=== PATIENT | female | born 1970 | race Hispanic/Latino ===

== ENCOUNTER 2021-11-11 08:47 | Emergency (ER) | payer SELFPAY ==
[2021-11-11] MEDS ORDERED: hydrOXYzine HCL 25 MG TAB PO ONE (09:18)
[2021-11-11] MEDS ORDERED: IBUPROFEN 600 MG TAB PO ONE (09:18)
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
[2021-11-11 10:20] LABS: Bilirubin,Urine NEG (Negative); Blood,Urine MOD (Negative); Color,Urine Yellow (Yellow); Protein,Urine <15 mg/dL mg/dL (Negative); Urobilinogen,Urine < 2.0 mg/dL (<2.0)
--- NOTE | 2021-11-11 11:06 | Vascular Lab Report ---
DUPLEX DOPPLER LOWER EXTREMITY VEINS, RIGHT INDICATION / CLINICAL INFORMATION: pain/swelling. TECHNIQUE: Duplex doppler imaging was performed through the veins of the right lower extremity using venous comp ression and other maneuvers. COMPARISON: None available. FINDINGS: RIGHT COMMON FEMORAL VEIN: Negative. RIGHT FEMORAL VEIN: Negative. RIGHT POPLITEAL VEIN: Negative. RIGHT CALF VEINS: Negative. ADDITIONAL FINDINGS: None. IMPRESSION: 1. No sonographic evidence for DVT in the right lower extremity. Signer Name: Edgar Layton MD Signed: 11/11/2021 11:02 AM Workstation Name: [id number]
[2021-11-11 12:04] LABS: Hematocrit 36.4 % (30.3-42.9); Hemoglobin 12.8 gm/dl (10.1-14.3); Mean Corpuscular HGB Conc 35 % (30-34); Mean Corpuscular Volume 88 fl (79-97); Platelet Count 268 K/mm3 (140-440); Red Blood Count 4.13 M/mm3 (3.65-5.03); Red Cell Distribution Width 13.1 % (13.2-15.2)
[2021-11-11 12:18] LABS: Blood Urea Nitrogen 16 mg/dL (7-17); Calcium 9.7 mg/dL (8.4-10.2); Hemolysis Index 9
[2021-11-11 12:24] LABS: BUN/Creatinine Ratio 27
[2021-11-11 13:20] VITALS: BP 150/96
== END 2021-11-11 13:23 | disposition home or self-care (01) ==
LOC: ED 08:47
DX: R60.0 Localized edema (principal); R53.81 Other malaise; R31.29 Other microscopic hematuria; N34.2 Other urethritis
CPT/HCPCS: 36415; 80048; 81001; 85027; 93971; 99284; Q0177

== ENCOUNTER 2022-04-15 18:37 | Emergency (ER) | payer SELFPAY ==
[2022-04-15 19:17] VITALS: BP 130/90
== END 2022-04-16 05:02 | disposition left against medical advice (07) ==
LOC: ED 18:37
DX: R10.9 Unspecified abdominal pain (principal); Z53.21 Procedure and treatment not carried out due to patient leaving prior to being seen by health care provider

== ENCOUNTER 2022-04-17 08:39 | Inpatient (IN) | payer SELFPAY ==
[2022-04-17] MEDS ORDERED: oxyCODONE /ACETAMINOPHEN 5-325MG TAB PO ONE (09:45)
[2022-04-17] MEDS ORDERED: ONDANSETRON 4 MG ODT TAB PO ONE (09:45)
--- NOTE | 2022-04-17 09:49 | Emergency Department Report ---
ED Abdominal Pain HPI - General Chief Complaint: Abdominal Pain Stated Complaint: ABDOMINAL PAIN Time Seen by Provider: 04/17/22 09:36 Source: patient, EMS Mode of arrival: Stretcher Limitations: No Limitations - History of Present Illness Initial Comments: 52-year-old female with surgical history of gallbladder removal, spinal fusion, hysterectomy reports to the ER with upper abdominal pain for 3 to weeks to 1 month. Patient reports the pain has increased over the last few days with increased nausea and vomiting. Patient reports her pain is 8 out of 10. Patient denies any suspicious food intake, no injury to abdomen area. Patient denies any consumption of alcohol. Patient denies weakness, dizziness, headaches, fever. No other acute symptoms reported this time. - Related Data Previous Rx's Medication Instructions Recorded Last Taken Type Ibuprofen [Motrin] 800 mg PO Q8HR PRN #20 tablet 11/11/21 Unknown Rx Phenazopyridine [Pyridium] 200 mg PO TID #9 tab 11/11/21 Unknown Rx Allergies Allergy/AdvReac Type Severity Reaction Status Date / Time Sulfa (Sulfonamide Allergy Intermediate Hives Verified 04/17/22 08:42 Antibiotics) ED Review of Systems ROS: Stated complaint: ABDOMINAL PAIN Other details as noted in HPI Comment: All other systems reviewed and negative Gastrointestinal: abdominal pain, nausea, vomiting. denies: diarrhea, constipation ED Past Medical Hx - Past Medical History Previous Medical History?: No Hx Hypertension: No Hx Congestive Heart Failure: No Hx Deep Vein Thrombosis: No - Surgical History Hx Cholecystectomy: Yes Additional Surgical History: spine fusion - Social History Smoking Status: Current Every Day Smoker - Medications Home Medications: Home Medications Medication Instructions Recorded Confirmed Last Taken Type Ibuprofen [Motrin] 800 mg PO Q8HR PRN #20 tablet 11/11/21 Unknown Rx Phenazopyridine [Pyridium] 200 mg PO TID #9 tab 11/11/21 Unknown Rx ED Physical Exam - General Limitations: No Limitations General appearance: alert, in no apparent distress - Head Head exam: Present: atraumatic, normocephalic - Eye Eye exam: Present: normal appearance - ENT ENT exam: Present: mucous membranes moist - Neck Neck exam: Present: normal inspection - Respiratory Respiratory exam: Present: normal lung sounds bilaterally. Absent: respiratory distress - Cardiovascular Cardiovascular Exam: Present: regular rate, normal rhythm. Absent: systolic murmur, diastolic murmur, rubs, gallop - GI/Abdominal GI/Abdominal exam: Present: soft, distended, tenderness, normal bowel sounds. Absent: guarding, rebound - Extremities Exam Extremities exam: Present: normal inspection - Back Exam Back exam: Present: normal inspection - Neurological Exam Neurological exam: Present: alert, oriented X3 - Psychiatric Psychiatric exam: Present: normal affect, normal mood - Skin Skin exam: Present: warm, dry, intact, normal color. Absent: rash ED Course Vital Signs 04/17/22 04/17/22 04/17/22 08:40 18:10 18:15 Temperature 98.1 F Pulse Rate 110 H 111 H 110 H Respiratory 14 20 20 Rate Blood Pressure 167/128 Blood Pressure 171/140 [Left] O2 Sat by Pulse 98 96 100 Oximetry 04/17/22 04/17/22 04/17/22 18:26 18:30 18:41 Temperature Pulse Rate 111 H 110 H Respiratory 17 18 17 Rate Blood Pressure 158/114 Blood Pressure 167/128 [Left] O2 Sat by Pulse 100 99 99 Oximetry 04/17/22 04/17/22 04/17/22 18:45 19:01 19:16 Temperature Pulse Rate 109 H Respiratory 20 Rate Blood Pressure 156/105 158/114 156/105 Blood Pressure [Left] O2 Sat by Pulse 98 95 94 Oximetry 04/17/22 04/17/22 04/17/22 19:35 19:37 19:52 Temperature 98.2 F Pulse Rate 100 H Respiratory 18 Rate Blood Pressure 151/108 156/105 Blood Pressure 151/101 [Left] O2 Sat by Pulse 99 97 99 Oximetry 04/17/22 20:01 Temperature Pulse Rate 104 H Respiratory 20 Rate Blood Pressure 158/114 Blood Pressure [Left] O2 Sat by Pulse 97 Oximetry ED Medical Decision Making - Lab Data Result diagrams: 04/17/22 09:50 04/17/22 09:50 - Medical Decision Making 52-year-old female with no significant past medical history reports to the ER with right upper quadrant pain for about 3 to 3 weeks to 1 month. On physical exam there is right upper quadrant tenderness negative Barton sign. Some epigastric pain. Slight abdominal distention. Patient has elevated BNP at about 11,900 Patient has elevated LFTs with an AST of 603 ALT was 476 and a bilirubin of 1.3 Chest x-ray shows enlargement of the heart. CT abdomen pelvis with contrast shows mild cardiomegaly with mild apparent medically with passive congestion associated with possible CHF. [facility] medicine spoke with Dr. Abdi for admission for new onset of CHF and elevated LFTs. Dr. Abdi accepted admission with a diagnosis of CHF and elevated LFTs. Vital Signs 04/17/22 04/17/22 04/17/22 08:40 18:10 18:15 Temperature 98.1 F Pulse Rate 110 H 111 H 110 H Respiratory 14 20 20 Rate Blood Pressure 167/128 Blood Pressure 171/140 [Left] O2 Sat by Pulse 98 96 100 Oximetry 04/17/22 04/17/22 04/17/22 18:26 18:30 18:41 Temperature Pulse Rate 111 H 110 H Respiratory 17 18 17 Rate Blood Pressure 158/114 Blood Pressure 167/128 [Left] O2 Sat by Pulse 100 99 99 Oximetry 04/17/22 04/17/22 04/17/22 18:45 19:01 19:16 Temperature Pulse Rate 109 H Respiratory 20 Rate Blood Pressure 156/105 158/114 156/105 Blood Pressure [Left] O2 Sat by Pulse 98 95 94 Oximetry 04/17/22 04/17/22 04/17/22 19:35 19:37 19:52 Temperature 98.2 F Pulse Rate 100 H Respiratory 18 Rate Blood Pressure 151/108 156/105 Blood Pressure 151/101 [Left] O2 Sat by Pulse 99 97 99 Oximetry 04/17/22 20:01 Temperature Pulse Rate 104 H Respiratory 20 Rate Blood Pressure 158/114 Blood Pressure [Left] O2 Sat by Pulse 97 Oximetry Lab Results 04/17/22 04/17/22 04/17/22 Range/Units 09:50 09:50 10:12 WBC 9.4 (4.5-11.0) K/mm3 RBC 4.44 (3.65-5.03) M/mm3 Hgb 13.0 (10.1-14.3) gm/dl Hct 39.4 (30.3-42.9) % MCV 89 (79-97) fl MCH 29 (28-32) pg MCHC 33 (30-34) % RDW 14.6 (13.2-15.2) % Plt Count 342 (140-440) K/mm3 Lymph % (Auto) 23.4 (13.4-35.0) % [place] % (Auto) 11.0 H (0.0-7.3) % Eos % (Auto) 0.3 (0.0-4.3) % Baso % (Auto) 0.9 (0.0-1.8) % Lymph # (Auto) 2.2 (1.2-5.4) K/mm3 [place] # (Auto) 1.0 H (0.0-0.8) K/mm3 Eos # (Auto) 0.0 (0.0-0.4) K/mm3 Baso # (Auto) 0.1 (0.0-0.1) K/mm3 Seg Neutrophils % 64.4 (40.0-70.0) % Seg Neutrophils # 6.1 (1.8-7.7) K/mm3 Sodium 136 L (137-145) mmol/L Potassium 4.4 (3.6-5.0) mmol/L Chloride 102.2 (98-107) mmol/L Carbon Dioxide 22 (22-30) mmol/L Anion Gap 16 mmol/L BUN 15 (7-17) mg/dL Creatinine 0.7 (0.6-1.2) mg/dL Estimated GFR > 60 ml/min BUN/Creatinine Ratio 21 % Glucose 96 (65-100) mg/dL Calcium 8.9 (8.4-10.2) mg/dL Total Bilirubin 1.30 H (0.1-1.2) mg/dL Direct Bilirubin (0-0.2) mg/dL Indirect Bilirubin mg/dL AST 603 H (5-40) units/L ALT 476 H (7-56) units/L Alkaline Phosphatase 166 H (35-129) units/L Troponin T (0.00-0.029) ng/mL NT-Pro-B Natriuret Pep (0-900) pg/mL Total Protein 6.2 L (6.3-8.2) g/dL Albumin 3.7 L (3.9-5) g/dL Albumin/Globulin Ratio 1.5 % Lipase 15 (13-60) units/L Urine Color Sia (Yellow) Urine Turbidity Clear (Clear) Urine pH 5.0 (5.0-7.0) Ur Specific [place] 1.030 (1.003-1.030) Urine Protein 30 mg/dl (Negative) mg/dL Urine Glucose (UA) Negative (Negative) mg/dL Urine Ketones 2+ (Negative) mg/dL Urine Blood Negative (Negative) Urine Nitrite Negative (Negative) Urine Bilirubin 1+ (Negative) Urine Ictotest Negative (Negative) Urine Urobilinogen 0.0 (<2.0) mg/dL Ur Leukocyte Esterase Negative (Negative) Urine WBC (Auto) < 1.0 (0.0-6.0) /HPF Urine RBC (Auto) < 1.0 (0.0-6.0) /HPF U Epithel Cells (Auto) 15.0 H (0-13.0) /HPF Hepatitis A IgM Ab (NonReactive) Hep Bs Antigen (Negative) Hep B Core IgM Ab (NonReactive) Hepatitis C Antibody (NonReactive) 04/17/22 04/17/22 04/17/22 Range/Units 17:18 17:18 19:20 WBC (4.5-11.0) K/mm3 RBC (3.65-5.03) M/mm3 Hgb (10.1-14.3) gm/dl Hct (30.3-42.9) % MCV (79-97) fl MCH (28-32) pg MCHC (30-34) % RDW (13.2-15.2) % Plt Count (140-440) K/mm3 Lymph % (Auto) (13.4-35.0) % [place] % (Auto) (0.0-7.3) % Eos % (Auto) (0.0-4.3) % Baso % (Auto) (0.0-1.8) % Lymph # (Auto) (1.2-5.4) K/mm3 [place] # (Auto) (0.0-0.8) K/mm3 Eos # (Auto) (0.0-0.4) K/mm3 Baso # (Auto) (0.0-0.1) K/mm3 Seg Neutrophils % (40.0-70.0) % Seg Neutrophils # (1.8-7.7) K/mm3 Sodium (137-145) mmol/L Potassium (3.6-5.0) mmol/L Chloride (98-107) mmol/L Carbon Dioxide (22-30) mmol/L Anion Gap mmol/L BUN (7-17) mg/dL Creatinine (0.6-1.2) mg/dL Estimated GFR ml/min BUN/Creatinine Ratio % Glucose (65-100) mg/dL Calcium (8.4-10.2) mg/dL Total Bilirubin 1.50 H (0.1-1.2) mg/dL Direct Bilirubin 0.6 H (0-0.2) mg/dL Indirect Bilirubin 0.9 mg/dL AST (5-40) units/L ALT 579 H (7-56) units/L Alkaline Phosphatase 169 H (35-129) units/L Troponin T < 0.010 (0.00-0.029) ng/mL NT-Pro-B Natriuret Pep 04137 H (0-900) pg/mL Total Protein 6.4 (6.3-8.2) g/dL Albumin 3.5 L (3.9-5) g/dL Albumin/Globulin Ratio 1.2 % Lipase (13-60) units/L Urine Color (Yellow) Urine Turbidity (Clear) Urine pH (5.0-7.0) Ur Specific [place] (1.003-1.030) Urine Protein (Negative) mg/dL Urine Glucose (UA) (Negative) mg/dL Urine Ketones (Negative) mg/dL Urine Blood (Negative) Urine Nitrite (Negative) Urine Bilirubin (Negative) Urine Ictotest (Negative) Urine Urobilinogen (<2.0) mg/dL Ur Leukocyte Esterase (Negative) Urine WBC (Auto) (0.0-6.0) /HPF Urine RBC (Auto) (0.0-6.0) /HPF U Epithel Cells (Auto) (0-13.0) /HPF Hepatitis A IgM Ab (NonReactive) Hep Bs Antigen (Negative) Hep B Core IgM Ab (NonReactive) Hepatitis C Antibody (NonReactive) 04/17/22 Range/Units 19:20 WBC (4.5-11.0) K/mm3 RBC (3.65-5.03) M/mm3 Hgb (10.1-14.3) gm/dl Hct (30.3-42.9) % MCV (79-97) fl MCH (28-32) pg MCHC (30-34) % RDW (13.2-15.2) % Plt Count (140-440) K/mm3 Lymph % (Auto) (13.4-35.0) % [place] % (Auto) (0.0-7.3) % Eos % (Auto) (0.0-4.3) % Baso % (Auto) (0.0-1.8) % Lymph # (Auto) (1.2-5.4) K/mm3 [place] # (Auto) (0.0-0.8) K/mm3 Eos # (Auto) (0.0-0.4) K/mm3 Baso # (Auto) (0.0-0.1) K/mm3 Seg Neutrophils % (40.0-70.0) % Seg Neutrophils # (1.8-7.7) K/mm3 Sodium (137-145) mmol/L Potassium (3.6-5.0) mmol/L Chloride (98-107) mmol/L Carbon Dioxide (22-30) mmol/L Anion Gap mmol/L BUN (7-17) mg/dL Creatinine (0.6-1.2) mg/dL Estimated GFR ml/min BUN/Creatinine Ratio % Glucose (65-100) mg/dL Calcium (8.4-10.2) mg/dL Total Bilirubin (0.1-1.2) mg/dL Direct Bilirubin (0-0.2) mg/dL Indirect Bilirubin mg/dL AST (5-40) units/L ALT (7-56) units/L Alkaline Phosphatase (35-129) units/L Troponin T (0.00-0.029) ng/mL NT-Pro-B Natriuret Pep (0-900) pg/mL Total Protein (6.3-8.2) g/dL Albumin (3.9-5) g/dL Albumin/Globulin Ratio % Lipase (13-60) units/L Urine Color (Yellow) Urine Turbidity (Clear) Urine pH (5.0-7.0) Ur Specific [place] (1.003-1.030) Urine Protein (Negative) mg/dL Urine Glucose (UA) (Negative) mg/dL Urine Ketones (Negative) mg/dL Urine Blood (Negative) Urine Nitrite (Negative) Urine Bilirubin (Negative) Urine Ictotest (Negative) Urine Urobilinogen (<2.0) mg/dL Ur Leukocyte Esterase (Negative) Urine WBC (Auto) (0.0-6.0) /HPF Urine RBC (Auto) (0.0-6.0) /HPF U Epithel Cells (Auto) (0-13.0) /HPF Hepatitis A IgM Ab Non-reactive (NonReactive) Hep Bs Antigen Non-reactive (Negative) Hep B Core IgM Ab Non-reactive (NonReactive) Hepatitis C Antibody Non-reactive (NonReactive) Critical care attestation.: If time is entered above; I have spent that time in minutes in the direct care of this critically ill patient, excluding procedure time. ED Disposition Clinical Impression: New onset of congestive heart failure, Elevated liver enzymes Disposition: 09 ADMITTED INPATIENT Is pt being admited?: Yes Condition: Stable Instructions: Abdominal Pain (ED)
[2022-04-17 10:56] LABS: Basophils # (Auto) 0.1 K/mm3 (0.0-0.1); Basophils % (Auto) 0.9 % (0.0-1.8); Eosinophils % (Auto) 0.3 % (0.0-4.3); Hematocrit 39.4 % (30.3-42.9); Lymphocytes # (Auto) 2.2 K/mm3 (1.2-5.4); Lymphocytes % (Auto) 23.4 % (13.4-35.0); Mean Corpuscular HGB Conc 33 % (30-34); Mean Corpuscular Volume 89 fl (79-97); Platelet Count 342 K/mm3 (140-440); Red Blood Count 4.44 M/mm3 (3.65-5.03); Red Cell Distribution Width 14.6 % (13.2-15.2)
[2022-04-17 11:02] LABS: Alanine Aminotransferase 476 units/L (7-56); Albumin 3.7 g/dL (3.9-5); Blood Urea Nitrogen 15 mg/dL (7-17); Calcium 8.9 mg/dL (8.4-10.2); Hemolysis Index 3
[2022-04-17 11:05] LABS: BUN/Creatinine Ratio 21
[2022-04-17 15:05] LABS: Color,Urine Amber (Yellow)
[2022-04-17 15:06] LABS: Bilirubin,Urine 1+ (Negative); Blood,Urine Negative (Negative); Ictotest,Urine Negative (Negative); RBC,Urine < 1.0 /HPF (0.0-6.0); WBC,Urine < 1.0 /HPF (0.0-6.0)
--- NOTE | 2022-04-17 15:48 | Cat Scan Report ---
CT ABDOMEN AND PELVIS WITH CONTRAST INDICATION / CLINICAL INFORMATION: abdominal pain 100ml of [id number] per pt having upper Right side radha n, also having back pain and has a hx of kidney stones. TECHNIQUE: Axial CT images were obtained through the abdomen and pelvis after IV contrast. All CT sc ans at this location are performed using CT dose reduction for ALARA by means of automated exposure c ontrol. COMPARISON: None available. FINDINGS: LOWER CHEST: Mild cardiomegaly with left ventricular chamber dilation. Moderate volume right and smal l left pleural effusions with right greater than left basilar subsegmental atelectasis. LIVER: Mild hepatomegaly with heterogeneous enhancement, which may be secondary to passive congestion associated with CHF. No capsular nodularity to suggest cirrhosis. No suspicious focal hepatic mass. The portal vein is patent. GALLBLADDER/BILIARY: Cholecystectomy. PANCREAS: No significant abnormality. SPLEEN: No significant abnormality. ADRENALS: No significant abnormality. KIDNEYS/URETERS: No urolithiasis, hydronephrosis, solid renal mass or other significant abnormality. GI: No acute bowel inflammation, obstruction or evidence for ischemia. APPENDIX: No significant abnormality. PERITONEUM: No pneumoperitoneum, free peritoneal fluid or loculated fluid collection. LYMPH NODES: No significant adenopathy. AORTA / ARTERIES: No significant abnormality. URINARY BLADDER: No significant abnormality. REPRODUCTIVE ORGANS: Uterus is absent. No significant adnexal abnormality. SKELETAL SYSTEM: Postoperative changes from posterior element decompression and fusion spanning L4-S1 . Hardware has been removed at L5-S1. ADDITIONAL FINDINGS: None. IMPRESSION: 1. No acute abdominopelvic process. 2. Right greater than left pleural effusions and suspected passive hepatic congestion associated with chronic congestive heart failure. 3. Other postoperative incidental findings, as detailed above. Signer Name: Franki Ackerman MD Signed: 04/17/2022 3:44 PM Workstation Name: [id number]
--- NOTE | 2022-04-17 17:33 | XRay Report ---
CHEST 1 VIEW INDICATION: abnormal CT findings of chest. COMPARISON: None. FINDINGS: Support devices: None. Heart: Enlarged. Lungs/Pleura: Small right and trace left effusions. Bibasilar opacities may be atelectatic. Left lung is essentially clear. No pneumothorax. IMPRESSION: 1. Small right and trace left pleural effusions with atelectatic changes in the right lung base. Signer Name: Tye Menchaca MD Signed: 04/17/2022 5:29 PM Workstation Name: [email or web address]
[2022-04-17] MEDS ORDERED: FUROSEMIDE 40 MG/4 ML INJ IV ONE (18:23)
[2022-04-17] MEDS ORDERED: MORPHINE 4 MG/1 ML INJ IV ONE (18:24)
[2022-04-17 20:00] LABS: Albumin 3.5 g/dL (3.9-5); Bilirubin,Direct 0.6 mg/dL (0-0.2)
[2022-04-17 20:12] LABS: Hepatitis B Surface Antigen Non-Reactive (Negative); Hepatitis C Virus Antibody Non-Reactive (NonReactive)
--- NOTE | 2022-04-17 21:21 | History and Physical Report ---
History of Present Illness Date of examination: 04/17/22 Date of admission: 04/17/2022 Chief complaint: Chest pain and cough for 1 day History of present illness: 52-year-old female with no significant past medical history comes in for increasing shortness of breath for 2 weeks. Shortness of breath on minimal exertion and orthopnea present. No chest pain. Patient also has right upper quadrant pain. Patient had cholecystectomy in the past and Hysterectomy no fever or chills. Patient was seen now for 10 minutes/11/25/2020 3 years ago. Not on any narcotics or opiates from previous 3 years ago. No alcohol. - Past Medical History --No - Surgical History --Cholecystectomy: Yes --Spine fusion - Social History --Smoking Status: Current Every Day Smoker -Family history Htn Review of Systems ROS: Stated complaint: ABDOMINAL PAIN Other details as noted in HPI Comment: All other systems reviewed and negative Gastrointestinal: abdominal pain, nausea, vomiting. denies: diarrhea, constipation Medications and Allergies Allergies Allergy/AdvReac Type Severity Reaction Status Date / Time Sulfa (Sulfonamide Allergy Intermediate Hives Verified 04/17/22 21:39 Antibiotics) Home Medications Medication Instructions Recorded Confirmed Last Taken Type Ibuprofen [Motrin] 800 mg PO Q8HR PRN #20 tablet 11/11/21 04/18/22 Unknown Rx Phenazopyridine [Pyridium] 200 mg PO TID #9 tab 11/11/21 04/18/22 Unknown Rx Exam - Constitutional Vitals: Temp Pulse Resp BP Pulse Ox 98.2 F 104 H 20 158/114 97 04/17/22 19:35 04/17/22 20:01 04/17/22 20:01 04/17/22 20:01 04/17/22 20:01 General appearance: Present: no acute distress, well-nourished - EENT Eyes: Present: PERRL ENT: hearing intact, clear oral mucosa - Neck Neck: Present: supple, normal ROM - Respiratory Respiratory effort: normal Respiratory: bilateral: CTA - Cardiovascular Heart rate: 78 Rhythm: regular Heart Sounds: Present: S1 & S2. Absent: rub, click - Extremities Extremities: pulses symmetrical, No edema Peripheral Pulses: within normal limits - Abdominal General gastrointestinal: Present: soft, non-tender, non-distended, normal bowel sounds Female genitourinary: Present: normal - Integumentary Integumentary: Present: clear, warm, dry - Musculoskeletal Musculoskeletal: gait normal, strength equal bilaterally - Psychiatric Psychiatric: appropriate mood/affect, intact judgment & insight - Neurologic Neurologic: CNII-XII intact, moves all extremities - Allied Health Allied health notes reviewed: nursing HEART Score - HEART Score History: Slightly suspicious Age: 45-65 Risk factors: 1-2 risk factors Troponin: Troponin T < 0.010 ng/mL (0.00-0.029) 04/17/22 17:18 Troponin: < normal limit - Critical Actions Critical Actions: 4-6 pts:12-16.6% risk of adverse cardiac event. Should be admitted Results - Labs CBC & Chem 7: 04/18/22 03:48 04/18/22 03:48 Labs: Laboratory Last Values WBC 9.4 K/mm3 (4.5-11.0) 04/17/22 09:50 RBC 4.44 M/mm3 (3.65-5.03) 04/17/22 09:50 Hgb 13.0 gm/dl (10.1-14.3) 04/17/22 09:50 Hct 39.4 % (30.3-42.9) 04/17/22 09:50 MCV 89 fl (79-97) 04/17/22 09:50 MCH 29 pg (28-32) 04/17/22 09:50 MCHC 33 % (30-34) 04/17/22 09:50 RDW 14.6 % (13.2-15.2) 04/17/22 09:50 Plt Count 342 K/mm3 (140-440) 04/17/22 09:50 Lymph % (Auto) 23.4 % (13.4-35.0) 04/17/22 09:50 [place] % (Auto) 11.0 % (0.0-7.3) H 04/17/22 09:50 Eos % (Auto) 0.3 % (0.0-4.3) 04/17/22 09:50 Baso % (Auto) 0.9 % (0.0-1.8) 04/17/22 09:50 Lymph # (Auto) 2.2 K/mm3 (1.2-5.4) 04/17/22 09:50 [place] # (Auto) 1.0 K/mm3 (0.0-0.8) H 04/17/22 09:50 Eos # (Auto) 0.0 K/mm3 (0.0-0.4) 04/17/22 09:50 Baso # (Auto) 0.1 K/mm3 (0.0-0.1) 04/17/22 09:50 Seg Neutrophils % 64.4 % (40.0-70.0) 04/17/22 09:50 Seg Neutrophils # 6.1 K/mm3 (1.8-7.7) 04/17/22 09:50 Sodium 136 mmol/L (137-145) L 04/17/22 09:50 Potassium 4.4 mmol/L (3.6-5.0) 04/17/22 09:50 Chloride 102.2 mmol/L (98-107) 04/17/22 09:50 Carbon Dioxide 22 mmol/L (22-30) 04/17/22 09:50 Anion Gap 16 mmol/L 04/17/22 09:50 BUN 15 mg/dL (7-17) 04/17/22 09:50 Creatinine 0.7 mg/dL (0.6-1.2) 04/17/22 09:50 Estimated GFR > 60 ml/min 04/17/22 09:50 BUN/Creatinine Ratio 21 % 04/17/22 09:50 Glucose 96 mg/dL (65-100) 04/17/22 09:50 Calcium 8.9 mg/dL (8.4-10.2) 04/17/22 09:50 Total Bilirubin 1.50 mg/dL (0.1-1.2) H 04/17/22 19:20 Direct Bilirubin 0.6 mg/dL (0-0.2) H 04/17/22 19:20 Indirect Bilirubin 0.9 mg/dL 04/17/22 19:20 AST 815 units/L (5-40) H 04/17/22 19:20 ALT 579 units/L (7-56) H 04/17/22 19:20 Alkaline Phosphatase 169 units/L (35-129) H 04/17/22 19:20 Troponin T < 0.010 ng/mL (0.00-0.029) 04/17/22 17:18 NT-Pro-B Natriuret Pep 45604 pg/mL (0-900) H 04/17/22 17:18 Total Protein 6.4 g/dL (6.3-8.2) 04/17/22 19:20 Albumin 3.5 g/dL (3.9-5) L 04/17/22 19:20 Albumin/Globulin Ratio 1.2 % 04/17/22 19:20 Lipase 15 units/L (13-60) 04/17/22 09:50 Urine Color Sia (Yellow) 04/17/22 10:12 Urine Turbidity Clear (Clear) 04/17/22 10:12 Urine pH 5.0 (5.0-7.0) 04/17/22 10:12 Ur Specific [place] 1.030 (1.003-1.030) 04/17/22 10:12 Urine Protein 30 mg/dl mg/dL (Negative) 04/17/22 10:12 Urine Glucose (UA) Negative mg/dL (Negative) 04/17/22 10:12 Urine Ketones 2+ mg/dL (Negative) 04/17/22 10:12 Urine Blood Negative (Negative) 04/17/22 10:12 Urine Nitrite Negative (Negative) 04/17/22 10:12 Urine Bilirubin 1+ (Negative) 04/17/22 10:12 Urine Ictotest Negative (Negative) 04/17/22 10:12 Urine Urobilinogen 0.0 mg/dL (<2.0) 04/17/22 10:12 Ur Leukocyte Esterase Negative (Negative) 04/17/22 10:12 Urine WBC (Auto) < 1.0 /HPF (0.0-6.0) 04/17/22 10:12 Urine RBC (Auto) < 1.0 /HPF (0.0-6.0) 04/17/22 10:12 U Epithel Cells (Auto) 15.0 /HPF (0-13.0) H 04/17/22 10:12 Hepatitis A IgM Ab Non-reactive (NonReactive) 04/17/22 19:20 Hep Bs Antigen Non-reactive (Negative) 04/17/22 19:20 Hep B Core IgM Ab Non-reactive (NonReactive) 04/17/22 19:20 Hepatitis C Antibody Non-reactive (NonReactive) 04/17/22 19:20 Short CBC 04/17/22 04/18/22 Range/Units 09:50 03:48 WBC 9.4 7.1 (4.5-11.0) K/mm3 Hgb 13.0 12.7 (10.1-14.3) gm/dl Hct 39.4 38.4 (30.3-42.9) % Plt Count 342 286 (140-440) K/mm3 BMP 04/17/22 04/18/22 09:50 03:48 Sodium 136 L 136 L Potassium 4.4 4.1 Chloride 102.2 98.9 Carbon Dioxide 22 26 BUN 15 17 Creatinine 0.7 0.8 Glucose 96 117 H Calcium 8.9 8.6 Cardiac Enzymes 04/17/22 Range/Units 17:18 Troponin T < 0.010 (0.00-0.029) ng/mL Liver Function 04/17/22 04/17/22 04/18/22 Range/Units 09:50 19:20 03:48 Total Bilirubin 1.30 H 1.50 H 1.00 (0.1-1.2) mg/dL Direct Bilirubin 0.6 H (0-0.2) mg/dL AST 603 H 815 H 516 H (5-40) units/L ALT 476 H 579 H 474 H (7-56) units/L Alkaline Phosphatase 166 H 169 H 148 H (35-129) units/L Albumin 3.7 L 3.5 L 3.3 L (3.9-5) g/dL Urine 04/17/22 Range/Units 10:12 Urine Color Sia (Yellow) Urine pH 5.0 (5.0-7.0) Ur Specific [place] 1.030 (1.003-1.030) Urine Protein 30 mg/dl (Negative) mg/dL Urine Glucose (UA) Negative (Negative) mg/dL - Imaging and Cardiology EKG: report reviewed (Sinus tachycardia heart rate of 54 minutes) Chest x-ray: report reviewed Imaging and Cardiology: CT of the abdomen and pelvis Liver: Mild hepatomegaly with heterogeneous enhancement which may be secondary to passive congestion associated with CHF. No capsular nodularity to suggest cirrhosis. No suspicious focal hepatic mass. The portal vein is patent. Cholecystectomy. No significant significant abnormality of pancreas. No significant abnormality of diagnosis. No kidney or ureteral problems. Final impression no acute abdominopelvic process. Right greater than left pleural effusions and suspected passive hepatic congestion. Assessment and Plan Advance Directives: Yes (Full code) Plan of care discussed with patient/family: Yes - Patient Problems (1) Acute exacerbation of CHF (congestive heart failure) Current Visit: Yes Status: Acute Plan to address problem: Daily intake output Daily weight IV Lasix Aldactone Echocardiogram for ejection fraction and valve abnormalities abnormal BNP is elevated Cardiology consult requested (2) New onset of congestive heart failure Current Visit: Yes Status: Acute Plan to address problem: IV Lasix initiated. Echocardiogram for ejection fraction and valve Cardiology consult requested abnormalities and wall motion abnormalities (3) Transaminitis Current Visit: Yes Status: Acute Plan to address problem: Differential diagnoses are hepatic congestion versus choledocholithiasis GI consult requested Hepatitis profile negative No history of alcoholism On Tylenol till 3-3 years ago (4) Advance care planning Current Visit: Yes Status: Acute Plan to address problem: Disease education conducted, care care plan discussed, diagnosis discussed and prognosis discussed. Patient acknowledged understanding with care plan. +30 minutes. (5) DVT prophylaxis Current Visit: Yes Status: Acute
[2022-04-17] MEDS ORDERED: METOCLOPRAMIDE 10 MG/2 ML INJ IV PRN (21:27)
[2022-04-17] MEDS ORDERED: ACETAMINOPHEN 325 MG TAB PO PRN (21:27)
[2022-04-17] MEDS ORDERED: ONDANSETRON 4 MG/2 ML INJ IV PRN (21:27)
[2022-04-17] MEDS ORDERED: SPIRONOLACTONE 25 MG TAB PO ONE (21:34)
[2022-04-17] MEDS ORDERED: POTASSIUM CHLORIDE ER 20 MEQ TAB PO ONE (21:34)
[2022-04-17] MEDS: VALSARTAN 160MG TAB PO SCH (22:48)
[2022-04-17] MEDS: carvediloL 6.25 MG TAB PO SCH (22:48)
[2022-04-17] MEDS: FAMOTIDINE 20 MG/2 ML INJ IV SCH (22:49)
[2022-04-17] MEDS: HEPARIN 5,000 UNIT/1 ML VIAL SUB-Q SCH (22:49)
[2022-04-17] MEDS: MORPHINE 2 MG/1 ML INJ IV PRN (23:13)
[2022-04-18] MEDS: MORPHINE 2 MG/1 ML INJ IV PRN ×4 (04:11→17:57)
[2022-04-18 04:24] LABS: Basophils % (Auto) 0.3 % (0.0-1.8); Eosinophils # (Auto) 0.1 K/mm3 (0.0-0.4); Hematocrit 38.4 % (30.3-42.9); Hemoglobin 12.7 gm/dl (10.1-14.3); Lymphocytes # (Auto) 2.4 K/mm3 (1.2-5.4); Lymphocytes % (Auto) 33.5 % (13.4-35.0); Mean Corpuscular HGB Conc 33 % (30-34); Mean Corpuscular Volume 89 fl (79-97); Monocytes # (Auto) 0.7 K/mm3 (0.0-0.8); Platelet Count 286 K/mm3 (140-440); Red Blood Count 4.32 M/mm3 (3.65-5.03)
[2022-04-18 04:45] LABS: Alanine Aminotransferase 474 units/L (7-56); Albumin 3.3 g/dL (3.9-5); BUN/Creatinine Ratio 21; Blood Urea Nitrogen 17 mg/dL (7-17); Calcium 8.6 mg/dL (8.4-10.2); Hemolysis Index 4
[2022-04-18] MEDS: FUROSEMIDE 40 MG/4 ML INJ IV SCH ×2 (05:26→17:54)
[2022-04-18] MEDS: carvediloL 6.25 MG TAB PO SCH ×2 (09:28→21:48)
[2022-04-18] MEDS: FAMOTIDINE 20 MG/2 ML INJ IV SCH ×2 (09:28→21:48)
[2022-04-18] MEDS: HEPARIN 5,000 UNIT/1 ML VIAL SUB-Q SCH ×2 (09:28→21:48)
[2022-04-18] MEDS: oxyCODONE /ACETAMINOPHEN 5-325MG TAB PO PRN (11:54)
[2022-04-18] MEDS ORDERED: SODIUM CHLORIDE 0.9% 500 ML 500 ML IV SCH (13:00)
--- NOTE | 2022-04-18 14:43 | Consultation ---
History of Present Illness Consult date: 04/18/22 Requesting physician: NACHO RUBIO Consult reason: congestive heart failure History of present illness: Patient is a 52-year-old female who reports a past medical history of degenerative joint disease, chronic back pain, and history of crack cocaine abuse(reports she has not used since June) who presents to the ED yesterday for complaint of weakness, dyspnea on exertion, and abdominal pain that has been going on for about a month. She states the pain became too severe that she had to come to be further evaluated. She describes her abdominal pain as sharp stabbing, worse with palpation, and locates it in the upper right quadrant. She also states that she develops lower extremity edema In the ED patient was found to have elevated BPs, elevated BNP and elevated LFTs. Abdominal CT shows suspected passive hepatic congestion associated with chronic CHF. At time of interview patient denies chest pain, palpitations, nausea, vomiting, diaphoresis. Patient is previously unknown to our practice. Cardiology is consulted for CHF. Past History Past Medical History: other (SEE HPI) Past Surgical History: cholecystectomy Social history: other (h/o crack coacaine use) Family history: cancer, diabetes, hypertension Medications and Allergies Allergies Allergy/AdvReac Type Severity Reaction Status Date / Time Sulfa (Sulfonamide Allergy Intermediate Hives Verified 04/17/22 21:39 Antibiotics) Home Medications Medication Instructions Recorded Confirmed Last Taken Type Ibuprofen [Motrin] 800 mg PO Q8HR PRN #20 tablet 11/11/21 04/18/22 Unknown Rx Phenazopyridine [Pyridium] 200 mg PO TID #9 tab 11/11/21 04/18/22 Unknown Rx Active Meds: Active Medications Acetaminophen (Acetaminophen 325 Mg Tab) 650 mg PO Q4H PRN PRN Reason: Pain MILD(1-3)/Fever >100.5/FIGUEROA Carvedilol (Carvedilol 6.25 Mg Tab) 12.5 mg PO BID [facility] Last Admin: 04/18/22 09:28 Dose: 12.5 mg Famotidine (Famotidine 20 Mg/2 Ml Inj) 20 mg IV BID [facility] Last Admin: 04/18/22 09:28 Dose: 20 mg Furosemide (Furosemide 40 Mg/4 Ml Inj) 40 mg IV 0600,1800 [facility] Last Admin: 04/18/22 05:26 Dose: 40 mg Heparin Sodium (Porcine) (Heparin 5,000 Unit/1 Ml Vial) 5,000 unit SUB-Q Q12HR [facility] Last Admin: 04/18/22 09:28 Dose: 5,000 unit Metoclopramide HCl (Metoclopramide 10 Mg/2 Ml Inj) 10 mg IV Q6H PRN PRN Reason: Nausea And Vomiting Morphine Sulfate (Morphine 2 Mg/1 Ml Inj) 2 mg IV Q4H PRN PRN Reason: Pain, Moderate (4-6) Last Admin: 04/18/22 13:54 Dose: 2 mg Ondansetron HCl (Ondansetron 4 Mg/2 Ml Inj) 4 mg IV Q8H PRN PRN Reason: Nausea And Vomiting Oxycodone/Acetaminophen (Oxycodone /Acetaminophen 5-325mg Tab) 1 tab PO Q6H PRN PRN Reason: Pain, Moderate (4-6) Last Admin: 04/18/22 11:54 Dose: 1 tab Sodium Chloride (Sodium Chloride 0.9% 10 Ml Flush Syringe) 10 ml IV BID [facility] Last Admin: 04/18/22 09:29 Dose: 10 ml Sodium Chloride (Sodium Chloride 0.9% 10 Ml Flush Syringe) 10 ml IV PRN PRN PRN Reason: LINE FLUSH Last Admin: 04/18/22 04:12 Dose: 10 ml Valsartan (Valsartan 160mg Tab) 160 mg PO Q24H [facility] Last Admin: 04/17/22 22:48 Dose: 160 mg Review of Systems Constitutional: weakness, no weight loss, no weight gain Ears, nose, mouth and throat: no sinus pressure, no sinus pain Cardiovascular: dyspnea on exertion, no chest pain, no orthopnea, no palpitations Respiratory: shortness of breath, dyspnea on exertion Gastrointestinal: abdominal pain, no nausea, no vomiting Musculoskeletal: low back pain, no neck stiffness, no neck pain, no shooting arm pain Physical Examination Vital Signs Temp Pulse Resp BP Pulse Ox 98.1 F 110 H 14 171/140 98 04/17/22 08:40 04/17/22 08:40 04/17/22 08:40 04/17/22 08:40 04/17/22 08:40 General appearance: no acute distress Neck: Positive: trachea midline Cardiac: Positive: Reg Rate and Rhythm Lungs: Positive: Normal Breath Sounds Neuro: Positive: Grossly Intact Abdomen: Positive: Tender Skin: Negative: Rash, Suspicious Lesions, Ulceration Extremities: Present: upper extr. pulses. Absent: edema Results 04/18/22 03:48 04/18/22 03:48 Cardiac Enzymes 04/17/22 04/18/22 Range/Units 19:20 03:48 AST 815 H 516 H (5-40) units/L CBC 04/18/22 Range/Units 03:48 WBC 7.1 (4.5-11.0) K/mm3 RBC 4.32 (3.65-5.03) M/mm3 Hgb 12.7 (10.1-14.3) gm/dl Hct 38.4 (30.3-42.9) % Plt Count 286 (140-440) K/mm3 Lymph # (Auto) 2.4 (1.2-5.4) K/mm3 [place] # (Auto) 0.7 (0.0-0.8) K/mm3 Eos # (Auto) 0.1 (0.0-0.4) K/mm3 Baso # (Auto) 0.0 (0.0-0.1) K/mm3 Comprehensive Metabolic Panel 04/17/22 04/18/22 Range/Units 19:20 03:48 Sodium 136 L (137-145) mmol/L Potassium 4.1 (3.6-5.0) mmol/L Chloride 98.9 (98-107) mmol/L Carbon Dioxide 26 (22-30) mmol/L BUN 17 (7-17) mg/dL Creatinine 0.8 (0.6-1.2) mg/dL Glucose 117 H (65-100) mg/dL Calcium 8.6 (8.4-10.2) mg/dL Direct Bilirubin 0.6 H (0-0.2) mg/dL Indirect Bilirubin 0.9 mg/dL AST 815 H 516 H (5-40) units/L ALT 579 H 474 H (7-56) units/L Alkaline Phosphatase 169 H 148 H (35-129) units/L Total Protein 6.4 5.8 L (6.3-8.2) g/dL Albumin 3.5 L 3.3 L (3.9-5) g/dL - Imaging and Cardiology Echo: report reviewed Cardiac cath: pending EKG interpretations - Telemetry EKG Rhythm: Sinus Tachycardia - EKG Sinus rhythms and dysrhythmias: sinus tachycardia Assessment and Plan Patient is a 52-year-old female who reports a past medical history of degenerative joint disease, chronic back pain, and history of crack cocaine abuse(reports she has not used since June) who presents to the ED yesterday for complaint of weakness, dyspnea on exertion, and abdominal pain that has been going on for about a month. Acute HFrEF Hypertension Transaminitis History of crack cocaine abuse Echo 04/17/2022-EF 10 to 15%. Severe global hypokinesis of LV. Mild diastolic dysfunction is present impaired relaxation pattern. Right ventricle is mildly d ilated. Right ventricle systolic function is normal. Left atrium is moderately dilated. Trace aortic regurgitation. Mild mitral regurgitation. Moderate to severe tricuspid regurgitation. Trace to mild pulmonic regurgitation Plan: EKG shows sinus tach 106 no acute ischemic changes. Troponin negative x1. Patient denies any complaint of chest pain next Agree with Lasix 40 mg IV twice daily for diuresis. Strict I&O's, daily weights, repeat BMP in the a.m. with close monitoring of renal function Patient currently on carvedilol 12.5 mg p.o. twice daily, valsartan 160 mg p.o. daily Will hold statin due to elevated LFTs Due to severely decreased EF will plan for cardiac cath in the a.m. Patient to be n.p.o. after midnight. Plan of care discussed with patient who verbalized understanding and acknowledgment Patient seen in conjunction with Dr. Bueno who agrees with this plan of care - Patient Problems (1) HTN (hypertension) Current Visit: Yes Status: Acute (2) Transaminitis Current Visit: Yes Status: Acute (3) Acute exacerbation of CHF (congestive heart failure) Current Visit: Yes Status: Acute
[2022-04-18] MEDS: VALSARTAN 160MG TAB PO SCH (21:48)
--- NOTE | 2022-04-18 22:05 | Progress Note ---
Assessment and Plan - Patient Problems (1) Acute exacerbation of CHF (congestive heart failure) Current Visit: Yes Status: Acute Plan to address problem: Echocardiogram done Ejection fraction 10 to 15% Cardiac cath in a.m. (2) New onset of congestive heart failure Current Visit: Yes Status: Acute Plan to address problem: IV Lasix initiated. Echocardiogram for ejection fraction and valve Cardiology consult requested abnormalities and wall motion abnormalities (3) Transaminitis Current Visit: Yes Status: Acute Plan to address problem: Possibly secondary to hepatic congestion EF is 10 to 15% (4) Advance care planning Current Visit: Yes Status: Acute Plan to address problem: Disease education conducted, care care plan discussed, diagnosis discussed and prognosis discussed. Patient acknowledged understanding with care plan. +30 minutes. (5) DVT prophylaxis Current Visit: Yes Status: Acute Subjective Date of service: 04/18/22 Principal diagnosis: CHF exacerbation Interval history: 52-year-old female with no significant past medical history comes in for increasing shortness of breath for 2 weeks. Shortness of breath on minimal exertion and orthopnea present. No chest pain. Patient also has right upper quadrant pain. Patient had cholecystectomy in the past and Hysterectomy no fever or chills. Patient was seen now for 10 minutes/11/25/2020 3 years ago. Not on any narcotics or opiates from previous 3 years ago. No alcohol. 04/18/2022 Echo 04/17/2022-EF 10 to 15%. Severe global hypokinesis of LV. Mild diastolic dysfunction is present impaired relaxation pattern. Right ventricle is mildly dilated. Right ventricle systolic function is normal. Left atrium is moderately dilated. Trace aortic regurgitation. Mild mitral regurgitation. Moderate to severe tricuspid regurgitation. Trace to mild pulmonic regurgitation For cardiac cath in a.m. Objective - Constitutional Vitals: Vital Signs - 12hr 04/18/22 04/18/22 04/18/22 11:28 16:09 19:17 Temperature 98.0 F 97.3 F L 97.5 F L Pulse Rate 86 75 74 Respiratory 18 18 18 Rate Blood Pressure 97/61 99/71 Blood Pressure 101/72 [Left] O2 Sat by Pulse 93 100 91 Oximetry 04/18/22 20:33 Temperature Pulse Rate Respiratory Rate Blood Pressure Blood Pressure [Left] O2 Sat by Pulse 91 Oximetry General appearance: Present: mild distress, well-nourished - EENT Eyes: PERRL, EOM intact ENT: hearing intact, clear oral mucosa Ears: bilateral: normal - Neck Neck: supple, normal ROM - Respiratory Respiratory effort: normal Respiratory: bilateral: CTA - Breasts Breasts: normal - Cardiovascular Heart rate: 78 Rhythm: regular Heart Sounds: Present: S1 & S2. Absent: gallop, rub Extremities: pulses intact, No edema, normal color, Full ROM - Gastrointestinal General gastrointestinal: Present: soft, non-tender, non-distended, normal bowel sounds - Genitourinary Female genitourinary: normal - Integumentary Integumentary: clear, warm, dry - Musculoskeletal Musculoskeletal: 1, strength equal bilaterally - Neurologic Neurologic: moves all extremities - Psychiatric Psychiatric: memory intact, appropriate mood/affect, intact judgment & insight - Labs CBC & Chem 7: 04/19/22 04:27 04/19/22 04:27 Labs: Abnormal lab results 04/18/22 04/18/22 04/18/22 Range/Units 03:48 03:48 18:08 [place] % (Auto) 10.0 H (0.0-7.3) % Sodium 136 L (137-145) mmol/L Glucose 117 H (65-100) mg/dL POC Glucose 111 H (70-105) mg/dL AST 516 H (5-40) units/L ALT 474 H (7-56) units/L Alkaline Phosphatase 148 H (35-129) units/L Total Protein 5.8 L (6.3-8.2) g/dL Albumin 3.3 L (3.9-5) g/dL HEART Score - HEART Score Age: 45-65 Risk factors: 1-2 risk factors Troponin: Troponin T < 0.010 ng/mL (0.00-0.029) 04/17/22 17:18 Troponin: < normal limit - Critical Actions Critical Actions: 4-6 pts:12-16.6% risk of adverse cardiac event. Should be admitted
[2022-04-19 04:41] LABS: Basophils % (Auto) 0.5 % (0.0-1.8); Eosinophils # (Auto) 0.3 K/mm3 (0.0-0.4); Eosinophils % (Auto) 4.3 % (0.0-4.3); Hemoglobin 13.5 gm/dl (10.1-14.3); Lymphocytes # (Auto) 2.4 K/mm3 (1.2-5.4); Lymphocytes % (Auto) 34.9 % (13.4-35.0); Mean Corpuscular HGB Conc 34 % (30-34); Mean Corpuscular Volume 89 fl (79-97); Monocytes # (Auto) 0.8 K/mm3 (0.0-0.8); Monocytes % (Auto) 12.4 % (0.0-7.3); Platelet Count 309 K/mm3 (140-440); Red Cell Distribution Width 14.2 % (13.2-15.2)
[2022-04-19 04:52] LABS: BUN/Creatinine Ratio 18; Blood Urea Nitrogen 16 mg/dL (7-17); Calcium 8.5 mg/dL (8.4-10.2); Hemolysis Index 13; INR 0.97 (0.87-1.13)
[2022-04-19 04:53] LABS: Partial Thromboplastin Time 24.5 Sec. (24.2-36.6)
[2022-04-19] MEDS: MORPHINE 2 MG/1 ML INJ IV PRN ×2 (05:14→12:57)
[2022-04-19] MEDS: FUROSEMIDE 40 MG/4 ML INJ IV SCH (06:45)
--- NOTE | 2022-04-19 08:50 | Electrocardiograph Report ---
[facility] Test Date: 2022-04-17 Test Time: 18:17:47 Pat Name: DESTINY FAGAN Department: Room: A475 1 Gender: F [employer]: [birth year] : 1970 Requested By: WAYLON SMITH Order Number: [id number] Reading MD: Dakota Bueno Measurements Intervals [place] Rate: 106 P: 78 LA: 144 QRS: 89 QRSD: 90 T: 93 QT: 391 QTc: 519 Interpretive Statements Sinus tachycardia Probable left atrial enlargement nonspecific st-t No previous ECG available for comparison Electronically Signed On 04-19-2022 8:50:19 EDT by Dakota Bueno
--- NOTE | 2022-04-19 09:02 | Electrocardiograph Report ---
[facility] Test Date: 2022-04-19 Test Time: 07:07:46 Pat Name: DESTINY FAGAN Department: Room: A475 1 Gender: F Analysis Consultant: LARY : 1970 Requested By: MELO YAN Order Number: [id number] Reading MD: Dakota Bueno Measurements Intervals [place] Rate: 88 P: 69 TN: 129 QRS: 68 QRSD: 92 T: 79 QT: 449 QTc: 537 Interpretive Statements Sinus rhythm Atrial premature complex Right atrial enlargement Left ventricular hypertrophy Prolonged QT interval Compared to ECG 04/17/2022 18:17:47 Atrial premature complex(es) now present Left ventricular hypertrophy now present Sinus tachycardia no longer present Myocardial infarct finding no longer present Electronically Signed On 04-19-2022 9:01:42 EDT by Dakota Bueno
[2022-04-19] MEDS: carvediloL 6.25 MG TAB PO SCH ×2 (09:19→21:31)
[2022-04-19] MEDS ORDERED: ASPIRIN EC 325 MG TAB PO ONE (09:19)
[2022-04-19] MEDS: FAMOTIDINE 20 MG/2 ML INJ IV SCH ×2 (09:20→21:32)
[2022-04-19] MEDS: HEPARIN 5,000 UNIT/1 ML VIAL SUB-Q SCH ×2 (09:20→21:32)
[2022-04-19] MEDS ORDERED: SODIUM CHLORIDE 0.9% 500 ML 500 ML ONE (09:20)
[2022-04-19] MEDS ORDERED: HEPARIN/NS 5000 UNIT/500ML 1,000 ML IR ONE (10:19)
[2022-04-19] MEDS: LIDOCAINE (1%) 10 MG/1 ML VIAL 20 ML MDV ONE ×2 (10:50→11:05)
[2022-04-19] MEDS: MIDAZOLAM 2 MG/2 ML INJ ONE ×2 (10:50→11:05)
[2022-04-19] MEDS: fentaNYL 100 MCG/2 ML INJ ONE ×2 (10:50→11:05)
[2022-04-19] MEDS: VERAPAMIL 5 MG/2 ML INJ ONE ×2 (10:51→11:07)
[2022-04-19] MEDS: HEPARIN 10,000 UNITS/10 ML VIAL ONE ×2 (10:51→11:07)
[2022-04-19] MEDS: NITROGLYCERIN SYRINGE 3 ML ONE ×2 (10:52→11:07)
--- NOTE | 2022-04-19 11:38 | Cardiac Catherization Report ---
DATE OF SERVICE: 04/19/2022 LEFT HEART CATHETERIZATION CLINICAL INFORMATION: This is a 52-year-old female with chest pain with severe LV dysfunction who is here for left heart catheterization for ischemic evaluation of cardiomyopathy. Procedure was done with moderate sedation started at 11:00, finished at 11:15 with 15 minutes of moderate sedation. DESCRIPTION OF PROCEDURE: Procedure was done via the right radial artery, sterile technique and local anesthesia. A 6-Wallisian radial sheath inserted. Left system with JL3.5 catheter. Left main is large and patent, bifurcates into large LAD, is patent. Diagonal 1, diagonal 2 medium caliber was patent. Circumflex is a large caliber vessel, dominant in the AV groove. It is patent. OM1, OM2 and LPDA are medium caliber, patent. RCA is a small nondominant vessel, patent. LV gram done in RICCO and KEANE shows severe LV dysfunction, LVEDP of 5 mmHg, LV is 108/5, aortic is 108/50. The 5-Wallisian catheters all taken over a guidewire. A 6-Wallisian radial sheath was discontinued. Radial band applied. No hematoma, no bleeding. SUMMARY: Normal coronaries. Left dominant system, severe LV dysfunction. Nonischemic cardiomyopathy. TID: [id number] RECEIPT: [id number] MARISSA/PAU
[2022-04-19] MEDS ORDERED: traMADol 50 MG TAB PO PRN (12:00)
[2022-04-19] MEDS ORDERED: HYDROcodone/ACETAMINOPHEN 5-325 MG TAB PO PRN (12:00)
--- NOTE | 2022-04-19 13:58 | Progress Note ---
Assessment and Plan Patient is a 52-year-old female who reports a past medical history of degenerative joint disease, chronic back pain, and history of crack cocaine abuse(reports she has not used since June) who presents to the ED yesterday for complaint of weakness, dyspnea on exertion, and abdominal pain that has been going on for about a month. Acute HFrEF Hypertension Transaminitis History of crack cocaine abuse Echo 04/17/2022-EF 10 to 15%. Severe global hypokinesis of LV. Mild diastolic dysfunction is present impaired relaxation pattern. Right ventricle is mildly dilated. Right ventricle systolic function is normal. Left atrium is moderately dilated. Trace aortic regurgitation. Mild mitral regurgitation. Moderate to severe tricuspid regurgitation. Trace to mild pulmonic regurgitation Cardiac cath 04/19/2022-normal coronaries, left dominant system, severe LV dysfunction. Nonischemic cardiomyopathy Plan: Cardiac cath this a.m. patient had normal coronaries Will convert to Lasix 40 mg p.o. daily Initiate Aldactone 25 mg p.o. daiyly Continue carvedilol 12.5 mg p.o. twice daily, valsartan 160 mg p.o. daily Will hold statin due to elevated LFTs Plan of care discussed with patient who verbalized understanding and acknowledgment Patient has verbalized that she may not be staying in [place] and may be moving recommend patient follow-up with head of cytogenetics wherever she decides to move to or she may follow-up with our group Cardiac status otherwise stable for discharge Patient may follow-up with our group, [facility] front end specialist, as an outpatient 1 to 2 weeks after discharge. Phone #[phone] Patient seen in conjunction with Dr. Bueno who agrees with this plan of care - Patient Problems (1) HTN (hypertension) Current Visit: Yes Status: Acute (2) Transaminitis Current Visit: Yes Status: Acute (3) Acute exacerbation of CHF (congestive heart failure) Current Visit: Yes Status: Acute Subjective Date of service: 04/19/22 Principal diagnosis: CHF exacerbation Interval history: Patient for cardiac cath this a.m. Sinus 70s to 80s on monitor with no events Objective Vital Signs Temp Pulse Resp BP BP Pulse Ox 04/19/22 11:43 79 87 04/19/22 11:39 113/74 04/19/22 08:38 90 120/86 93 04/19/22 04:33 98.2 F 88 16 118/77 90 04/18/22 23:17 97.8 F 77 18 114/76 99 04/18/22 21:00 74 04/18/22 20:33 91 04/18/22 19:17 97.5 F L 74 18 99/71 91 04/18/22 16:09 97.3 F L 75 18 101/72 100 - Physical Examination General: No Apparent Distress Neck: Positive: trachea midline Cardiac: Positive: Reg Rate and Rhythm Lungs: Positive: Normal Breath Sounds Neuro: Positive: Grossly Intact Abdomen: Positive: Tender Skin: Negative: Rash, Suspicious Lesions, Ulceration Extremities: Present: upper extr. pulses. Absent: edema - Labs and Meds Coagulation 04/19/22 Range/Units 04:27 PT 14.0 (12.2-14.9) Sec. INR 0.97 (0.87-1.13) APTT 24.5 (24.2-36.6) Sec. CBC 04/19/22 Range/Units 04:27 WBC 6.8 (4.5-11.0) K/mm3 RBC 4.50 (3.65-5.03) M/mm3 Hgb 13.5 (10.1-14.3) gm/dl Hct 40.0 (30.3-42.9) % Plt Count 309 (140-440) K/mm3 Lymph # (Auto) 2.4 (1.2-5.4) K/mm3 [place] # (Auto) 0.8 (0.0-0.8) K/mm3 Eos # (Auto) 0.3 (0.0-0.4) K/mm3 Baso # (Auto) 0.0 (0.0-0.1) K/mm3 Comprehensive Metabolic Panel 04/19/22 Range/Units 04:27 Sodium 135 L (137-145) mmol/L Potassium 4.8 (3.6-5.0) mmol/L Chloride 93.7 L (98-107) mmol/L Carbon Dioxide 35 H D (22-30) mmol/L BUN 16 (7-17) mg/dL Creatinine 0.9 (0.6-1.2) mg/dL Glucose 100 (65-100) mg/dL Calcium 8.5 (8.4-10.2) mg/dL - Imaging and Cardiology EKG: report reviewed (Sinus tachycardia heart rate of 54 minutes) Echo: report reviewed Cardiac cath: report reviewed - Telemetry EKG Rhythm: Sinus Rhythm - EKG Sinus rhythms and dysrhythmias: sinus rhythm, sinus tachycardia
[2022-04-19] MEDS: SPIRONOLACTONE 25 MG TAB PO SCH (14:53)
--- NOTE | 2022-04-19 17:37 | Discharge Summary ---
Providers - Providers Date of Admission: 04/17/22 21:27 Date of discharge: 04/21/22 Attending physician: NACHO RUBIO 04/17/22 21:36 Consult to Physician [CONS] Routine Comment: Consulting Provider: DIANA FINLEY Physician Instructions: Reason For Exam: New onset CHF 04/19/22 11:19 Consult to Cardiac Rehabilitation [CONS] Routine Reason For Exam: Cardiac Rehab Evaluation Primary care physician: NIKHIL SALINAS Hospitalization Condition: Stable Disposition: 01 HOME / SELF CARE / HOMELESS - Discharge Diagnoses (1) Acute exacerbation of CHF (congestive heart failure) Status: Acute (2) New onset of congestive heart failure Status: Acute (3) Transaminitis Status: Acute (4) Advance care planning Status: Acute (5) DVT prophylaxis Status: Acute Core Measure Documentation - Palliative Care Palliative Care/ Comfort Measures: Not Applicable - Core Measures Any of the following diagnoses?: none Exam - Constitutional Vitals: Temp Pulse Resp BP Pulse Ox 98.2 F 79 16 113/74 91 04/19/22 04:33 04/19/22 11:43 04/19/22 04:33 04/19/22 11:39 04/19/22 13:00 General appearance: Present: no acute distress, well-nourished - EENT Eyes: Present: PERRL ENT: hearing intact, clear oral mucosa - Neck Neck: Present: supple, normal ROM - Respiratory Respiratory effort: normal Respiratory: bilateral: CTA - Cardiovascular Heart rate: 78 Rhythm: regular Heart Sounds: Present: S1 & S2. Absent: rub, click - Extremities Extremities: pulses symmetrical, No edema Peripheral Pulses: within normal limits - Abdominal General gastrointestinal: Present: soft, non-tender, non-distended, normal bowel sounds Female genitourinary: Present: normal - Integumentary Integumentary: Present: clear, warm, dry - Musculoskeletal Musculoskeletal: gait normal, strength equal bilaterally - Psychiatric Psychiatric: appropriate mood/affect, intact judgment & insight - Neurologic Neurologic: CNII-XII intact, moves all extremities Plan Activity: no restrictions Diet: low fat, low cholesterol, low salt Follow up with: NIKHIL SALINAS MD [Primary Care Provider] - 3-5 Days ISMA GARCIA MD [Staff Physician] - 7 Days Prescriptions: Spironolactone [Aldactone] 25 mg PO QDAY 30 Days #30 tablet carvediloL [Coreg] 12.5 mg PO BID 30 Days #60 tablet Valsartan [Diovan] 160 mg PO Q24H 30 Days #30 tablet Furosemide [Lasix TAB] 40 mg PO QDAY 30 Days #30 tablet
[2022-04-19] MEDS: VALSARTAN 160MG TAB PO SCH (21:31)
[2022-04-20] MEDS: HEPARIN 5,000 UNIT/1 ML VIAL SUB-Q SCH ×2 (10:29→23:43)
[2022-04-20] MEDS: SPIRONOLACTONE 25 MG TAB PO SCH (10:29)
[2022-04-20] MEDS: FUROSEMIDE 40 MG TAB PO SCH (10:29)
[2022-04-20] MEDS: carvediloL 6.25 MG TAB PO SCH ×2 (10:29→22:42)
[2022-04-20] MEDS: FAMOTIDINE 20 MG/2 ML INJ IV SCH (10:29)
[2022-04-20] MEDS: oxyCODONE /ACETAMINOPHEN 5-325MG TAB PO PRN ×2 (10:32→21:42)
[2022-04-20] MEDS ORDERED: PROMETHAZINE 12.5 MG RECT SUPP PR STA (20:51)
[2022-04-20] MEDS: FAMOTIDINE 20 MG TAB PO SCH (21:43)
[2022-04-20] MEDS: VALSARTAN 160MG TAB PO SCH (22:42)
--- NOTE | 2022-04-21 07:16 | Progress Note ---
Assessment and Plan - Patient Problems (1) Acute exacerbation of CHF (congestive heart failure) Current Visit: Yes Status: Acute Plan to address problem: Echocardiogram done Ejection fraction 10 to 15% Cardiac cath in a.m. (2) New onset of congestive heart failure Current Visit: Yes Status: Acute Plan to address problem: IV Lasix initiated. Echocardiogram for ejection fraction and valve Cardiology consult requested abnormalities and wall motion abnormalities (3) Transaminitis Current Visit: Yes Status: Acute Plan to address problem: Possibly secondary to hepatic congestion EF is 10 to 15% (4) DVT prophylaxis Current Visit: Yes Status: Acute Plan to address problem: On heparin and GI prophylaxis (5) Advance care planning Current Visit: Yes Status: Acute Plan to address problem: Disease education conducted, care care plan discussed, diagnosis discussed and p rognosis discussed. Patient acknowledged understanding with care plan. +30 minutes. Subjective Date of service: 04/19/22 Principal diagnosis: CHF exacerbation Interval history: 52-year-old female with no significant past medical history comes in for increasing shortness of breath for 2 weeks. Shortness of breath on minimal exertion and orthopnea present. No chest pain. Patient also has right upper quadrant pain. Patient had cholecystectomy in the past and Hysterectomy no fever or chills. Patient was seen now for 10 minutes/11/25/2020 3 years ago. Not on any narcotics or opiates from previous 3 years ago. No alcohol. 04/18/2022 Echo 04/17/2022-EF 10 to 15%. Severe global hypokinesis of LV. Mild diastolic dysfunction is present impaired relaxation pattern. Right ventricle is mildly dilated. Right ventricle systolic function is normal. Left atrium is moderately dilated. Trace aortic regurgitation. Mild mitral regurgitation. Moderate to severe tricuspid regurgitation. Trace to mild pulmonic regurgitation For cardiac cath in a.m. 04/19/22 Cath normal Nonischemic cardiomyopathy Very low ejection fraction Objective - Constitutional Vitals: Vital Signs - 12hr 04/20/22 04/20/22 04/20/22 19:18 21:42 22:00 Temperature 98.9 F Pulse Rate 86 Respiratory 16 20 Rate Respiratory 20 Rate [Right Chest] Blood Pressure 112/76 O2 Sat by Pulse 96 96 Oximetry 04/20/22 04/21/22 23:24 03:54 Temperature 98.2 F 97.7 F Pulse Rate 91 H 99 H Respiratory 18 18 Rate Respiratory Rate [Right Chest] Blood Pressure 139/70 113/75 O2 Sat by Pulse 97 99 Oximetry General appearance: Present: no acute distress, well-nourished - EENT Eyes: PERRL, EOM intact ENT: hearing intact, clear oral mucosa Ears: bilateral: normal - Neck Neck: supple, normal ROM - Respiratory Respiratory effort: normal Respiratory: bilateral: CTA - Breasts Breasts: normal - Cardiovascular Heart rate: 78 Rhythm: regular Heart Sounds: Present: S1 & S2. Absent: gallop, rub Extremities: pulses intact, No edema, normal color, Full ROM - Gastrointestinal General gastrointestinal: Present: soft, non-tender, non-distended, normal bowel sounds - Genitourinary Female genitourinary: normal - Integumentary Integumentary: clear, warm, dry - Musculoskeletal Musculoskeletal: 1, strength equal bilaterally - Neurologic Neurologic: moves all extremities - Psychiatric Psychiatric: memory intact, appropriate mood/affect, intact judgment & insight - Labs CBC & Chem 7: 04/19/22 04:27 04/19/22 04:27 HEART Score - HEART Score Age: 45-65 Risk factors: 1-2 risk factors Troponin: Troponin T < 0.010 ng/mL (0.00-0.029) 04/17/22 17:18 Troponin: < normal limit - Critical Actions Critical Actions: 4-6 pts:12-16.6% risk of adverse cardiac event. Should be admitted
--- NOTE | 2022-04-21 07:18 | Progress Note ---
Assessment and Plan - Patient Problems (1) Acute exacerbation of CHF (congestive heart failure) Current Visit: Yes Status: Acute (2) New onset of congestive heart failure Current Visit: Yes Status: Acute (3) Transaminitis Current Visit: Yes Status: Acute (4) DVT prophylaxis Current Visit: Yes Status: Acute (5) Advance care planning Current Visit: Yes Status: Acute Subjective Date of service: 04/20/22 Principal diagnosis: CHF exacerbation Interval history: 52-year-old female with no significant past medical history comes in for increasing shortness of breath for 2 weeks. Shortness of breath on minimal exertion and orthopnea present. No chest pain. Patient also has right upper quadrant pain. Patient had cholecystectomy in the past and Hysterectomy no fever or chills. Patient was seen now for 10 minutes/11/25/2020 3 years ago. Not on any narcotics or opiates from previous 3 years ago. No alcohol. 04/18/2022 Echo 04/17/2022-EF 10 to 15%. Severe global hypokinesis of LV. Mild diastolic dysfunction is present impaired relaxation pattern. Right ventricle is mildly dilated. Right ventricle systolic function is normal. Left atrium is moderately dilated. Trace aortic regurgitation. Mild mitral regurgitation. Moderate to severe tricuspid regurgitation. Trace to mild pulmonic regurgitation For cardiac cath in a.m. 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 Objective - Constitutional Vitals: Vital Signs - 12hr 04/20/22 04/20/22 04/20/22 19:18 21:42 22:00 Temperature 98.9 F Pulse Rate 86 Respiratory 16 20 Rate Respiratory 20 Rate [Right Chest] Blood Pressure 112/76 O2 Sat by Pulse 96 96 Oximetry 04/20/22 04/21/22 23:24 03:54 Temperature 98.2 F 97.7 F Pulse Rate 91 H 99 H Respiratory 18 18 Rate Respiratory Rate [Right Chest] Blood Pressure 139/70 113/75 O2 Sat by Pulse 97 99 Oximetry General appearance: Present: no acute distress, well-nourished - EENT Eyes: PERRL, EOM intact ENT: hearing intact, clear oral mucosa Ears: bilateral: normal - Neck Neck: supple, normal ROM - Respiratory Respiratory effort: normal Respiratory: bilateral: CTA - Breasts Breasts: normal - Cardiovascular Heart rate: 78 Rhythm: regular Heart Sounds: Present: S1 & S2. Absent: gallop, rub Extremities: pulses intact, No edema, normal color, Full ROM - Gastrointestinal General gastrointestinal: Present: soft, non-tender, non-distended, normal bowel sounds - Genitourinary Female genitourinary: normal - Integumentary Integumentary: clear, warm, dry - Musculoskeletal Musculoskeletal: 1, strength equal bilaterally - Neurologic Neurologic: moves all extremities - Psychiatric Psychiatric: memory intact, appropriate mood/affect, intact judgment & insight - Labs CBC & Chem 7: 04/19/22 04:27 04/19/22 04:27 HEART Score - HEART Score Age: 45-65 Risk factors: 1-2 risk factors Troponin: Troponin T < 0.010 ng/mL (0.00-0.029) 04/17/22 17:18 Troponin: < normal limit - Critical Actions Critical Actions: 4-6 pts:12-16.6% risk of adverse cardiac event. Should be admitted
[2022-04-21 08:16] VITALS: BP 107/73
[2022-04-21] MEDS: SPIRONOLACTONE 25 MG TAB PO SCH (09:44)
[2022-04-21] MEDS: carvediloL 6.25 MG TAB PO SCH (09:44)
[2022-04-21] MEDS: FAMOTIDINE 20 MG TAB PO SCH (09:44)
[2022-04-21] MEDS: HEPARIN 5,000 UNIT/1 ML VIAL SUB-Q SCH (09:45)
[2022-04-21] MEDS: FUROSEMIDE 40 MG TAB PO SCH (09:45)
== END 2022-04-21 10:00 | disposition home or self-care (01) | DRG 286 ==
LOC: ED 08:39 → 4A 21:27
PROVIDERS: ADMIT Internal Medicine; ATTEND Internal Medicine
PROC: 4A023N7 Measurement of Cardiac Sampling and Pressure, Left Heart, Percutaneous Approach (ICD-10-PCS; principal; 2022-04-19)
PROC: B2151ZZ Fluoroscopy of Left Heart using Low Osmolar Contrast (ICD-10-PCS; 2022-04-19)
PROC: B2111ZZ Fluoroscopy of Multiple Coronary Arteries using Low Osmolar Contrast (ICD-10-PCS; 2022-04-19)
DX: I11.0 Hypertensive heart disease with heart failure (principal); I50.21 Acute systolic (congestive) heart failure; R74.01 Elevation of levels of liver transaminase levels; F17.200 Nicotine dependence, unspecified, uncomplicated; Z90.49 Acquired absence of other specified parts of digestive tract; Z82.49 Family history of ischemic heart disease and other diseases of the circulatory system; Z83.3 Family history of diabetes mellitus
CPT/HCPCS: 36415; 71045; 74177; 80048; 80053; 80074; 80076; 81001; 82962; 83690; 83880; 84484; 85025; 85610; 85730; 86850; 86900; 86901; 93005; 93306; 93458; G0378; J1815; J3490; C1894; C8929; J1644; J1940; J2250; J2270; J3010; J7040; Q0162; Q9967

== ENCOUNTER 2022-04-21 12:45 | Emergency (ER) | payer SELFPAY ==
[2022-04-21 12:48] VITALS: BP 111/71
== END 2022-04-22 13:30 | disposition left against medical advice (07) ==
LOC: ED 12:45
DX: R53.1 Weakness (principal); Z53.21 Procedure and treatment not carried out due to patient leaving prior to being seen by health care provider